=== PATIENT | female | born 1985 | race Caucasian/White ===

== ENCOUNTER 2017-08-19 10:25 | Emergency (ER) | payer OTHER ==
[~2017-08-19] VITALS: Ht 177.8 cm; Wt 59.0 kg
[2017-08-19] MEDS ORDERED: ROBAXIN 750 MG750 M1 PO (12:20)
[2017-08-19] MEDS ORDERED: NAPROSYN500 MG PO (12:20)
[2017-08-19] MEDS ORDERED: TRAMADOL 50 MG50 MG PO (12:20)
[2017-08-19 12:27] VITALS: BP 120/86
== END 2017-08-19 12:28 | disposition home or self-care (01) ==
LOC: M.ERS 10:25
DX: M54.2 Cervicalgia (principal); M54.5 Low back pain; M54.6 Pain in thoracic spine; Z91.048 Other nonmedicinal substance allergy status; V89.2XXA Person injured in unspecified motor-vehicle accident, traffic, initial encounter; Y93.89 Activity, other specified; Y92.89 Other specified places as the place of occurrence of the external cause; Y99.8 Other external cause status

== ENCOUNTER 2018-02-23 07:31 | Emergency (ER) | payer OTHER ==
[~2018-02-23] VITALS: Ht 177.8 cm; Wt 63.5 kg
[~2018-02-23 07:31] MED LIST: NAPROSYN500 MG PO; ROBAXIN 750 MG750 M1 PO; TRAMADOL 50 MG50 MG PO
[2018-02-23 08:31] LABS: ABSOLUTE BASOPHILS 0.1 thou/uL (0.0-0.2); ABSOLUTE EOSINOPHILS 0.1 thou/uL (0.0-0.7); ABSOLUTE LYMPHOCYTES 1.8 thou/uL (0.8-5.3); ABSOLUTE MONOCYTES 0.9 thou/uL (0.0-1.2); ABSOLUTE NEUTROPHILS 10.9 thou/uL (1.6-8.1); BASOPHILS 0.4 %; EOSINOPHILS 0.8 %; HEMATOCRIT 44.4 % (37.0-47.0); HEMOGLOBIN 15.1 gm/dL (12.0-15.0); MCHC 33.9 g/dL (28.0-37.0); MCV 88.6 fL (80.0-100.0); MONOCYTES 6.6 %; MPV 8.7 fl. (7.2-11.1); NUCLEATED RBCS 0 /100WBC; PLATELET COUNT* 250 thou/uL (150-400); POLYS 79.2 %; RBC 5.01 mil/uL (4.20-5.00); RDW-CV 13.4 % (10.5-14.5); WBC 13.7 thou/uL (4.0-11.0)
[2018-02-23 08:39] LABS: CALCIUM 8.7 mg/dL (8.5-10.1); CREATININE 0.8 mg/dL (0.6-1.3); POTASSIUM 3.5 mmol/L (3.5-5.1)
[2018-02-23 08:43] LABS: ALBUMIN 4.6 g/dL (3.4-5.0); TOTAL BILIRUBIN 0.9 mg/dL (<0.1-1.0); TOTAL PROTEIN 7.5 g/dL (6.4-8.2)
[2018-02-23 08:57] LABS: URINE BILIRUBIN NEGATIVE (Negative); URINE BLOOD 3+ (Negative); URINE CLARITY CLOUDY; URINE COLOR YELLOW; URINE GLUCOSE-RANDOM NEGATIVE (Negative); URINE KETONES NEGATIVE (Negative); URINE PROTEIN 2+ (Negative); URINE SPECIFIC GRAVITY 1.015 (1.005-1.030); URINE UROBILINOGEN 0.2 E.U./dl (0.2-1.0)
[2018-02-23 08:59] LABS: URINE LEUKOCYTES-REFLEX 3+ (Negative); URINE NITRITE-REFLEX POSITIVE (Negative)
[2018-02-23 09:05] LABS: CASTS None Seen /LPF (None Seen); CRYSTALS None Seen /LPF (None Seen); SQUAMOUS 0-3 Few /LPF (0-3); URINE RBC >20 Many /HPF (0-2); URINE WBC-REFLEX >25 Many /HPF (0-5)
[2018-02-23] MEDS ORDERED: BACTRIM DS TAB1 EACH PO (10:37)
[2018-02-23] MEDS ORDERED: FLEXERIL PO (10:37)
[2018-02-23] MEDS ORDERED: HYDROCODONE-AP1 EAC6 PO (10:37)
[2018-02-23] MEDS ORDERED: IBUPROFEN 800800 M1 PO (10:37)
[2018-02-23 10:47] VITALS: BP 113/80
== END 2018-02-23 10:47 | disposition home or self-care (01) ==
LOC: M.ERS 07:31
PROVIDERS: Emergency Medicine Emergency Medical Services
DX: N39.0 Urinary tract infection, site not specified (principal)

== ENCOUNTER 2019-12-16 21:49 | Emergency (ER) | payer OTHER ==
[~2019-12-16] VITALS: Ht 180.3 cm; Wt 68.0 kg
[~2019-12-16 21:49] MED LIST changes: +BACTRIM DS TAB1 EACH PO; +FLEXERIL PO; +HYDROCODONE-AP1 EAC6 PO; +IBUPROFEN 800800 M1 PO
[2019-12-16 22:19] LABS: ABSOLUTE BASOPHILS 0.1 thou/uL (0.0-0.2); ABSOLUTE EOSINOPHILS 0.1 thou/uL (0.0-0.7); ABSOLUTE LYMPHOCYTES 4.1 thou/uL (0.8-5.3); ABSOLUTE MONOCYTES 0.5 thou/uL (0.0-1.2); ABSOLUTE NEUTROPHILS 4.1 thou/uL (1.6-8.1); BASOPHILS 0.9 %; HEMATOCRIT 42.4 % (37.0-47.0); HEMOGLOBIN 14.8 gm/dL (12.0-15.0); MCH 30.9 pg (26.0-34.0); MCV 88.3 fL (80.0-100.0); MONOCYTES 6.1 %; MPV 8.2 fl. (7.2-11.1); NUCLEATED RBCS 0 /100WBC; PLATELET COUNT* 347 thou/uL (150-400); RDW-CV 13.1 % (10.5-14.5); WBC 8.8 thou/uL (4.0-11.0)
[2019-12-16 22:24] LABS: CALCIUM 9.2 mg/dL (8.5-10.1); CREATININE 1.1 mg/dL (0.6-1.3)
[2019-12-16 22:34] LABS: ALBUMIN 4.7 g/dL (3.4-5.0); MAGNESIUM 2.2 mg/dL (1.8-2.4); TOTAL BILIRUBIN 0.6 mg/dL (<0.1-1.0); TOTAL PROTEIN 7.6 g/dL (6.4-8.2)
[2019-12-16 23:27] LABS: URINE BILIRUBIN NEGATIVE (Negative); URINE BLOOD NEGATIVE (Negative); URINE CLARITY CLEAR; URINE COLOR YELLOW; URINE GLUCOSE-RANDOM NEGATIVE (Negative); URINE KETONES 2+ (Negative); URINE LEUKOCYTES-REFLEX NEGATIVE (Negative); URINE NITRITE-REFLEX NEGATIVE (Negative); URINE PROTEIN NEGATIVE (Negative); URINE SPECIFIC GRAVITY >= 1.030 (1.005-1.030); URINE UROBILINOGEN 0.2 E.U./dl (0.2-1.0)
[2019-12-16 23:55] LABS: AMP/METHAMP Negative (Negative); BARBITURATES Negative (Negative); BENZODIAZEPINES Negative (Negative); COCAINE Negative (Negative); METHADONE Negative (Negative); OPIATES Negative (Negative); PCP Negative (Negative); THC POSITIVE (Negative)
[2019-12-17 00:34] VITALS: BP 129/88
--- NOTE | 2019-12-17 10:23 | EKG ---
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1985 Requested By: Mercy Colby Order Number: [id number] MD: Eliezer Nair Measurements Intervals [place] Rate: 164 P: 80 CO: 110 QRS: 66 QRSD: 80 T: -2 QT: 295 QTc: 488 Interpretive Statements Supraventriclartachycardia ST depr, consider ischemia, inferior leads Borderline prolonged QT interval No previous ECG available for compariso Electronically Signed On 12-17-2019 10:22:13 CDT by Eliezer Nair [email or web address] <ELECTRONICALLY SIGNED> By: Eliezer Nair MD, [facility] 12/17/19 1022 01 01 Eliezer Nair MD, [facility] /EPI
--- NOTE | 2019-12-17 10:25 | EKG ---
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
--- NOTE | 2019-12-17 10:26 | EKG ---
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
== END 2019-12-17 00:35 | disposition home or self-care (01) ==
LOC: M.ERS 21:49
PROVIDERS: Emergency Medicine
DX: E87.6 Hypokalemia (principal); F41.9 Anxiety disorder, unspecified; R06.4 Hyperventilation; R00.0 Tachycardia, unspecified; Z98.51 Tubal ligation status; Z91.048 Other nonmedicinal substance allergy status